=== PATIENT | male | born 1985 | race Two or more races ===

== ENCOUNTER 2017-06-15 17:28 | Emergency (ER) | payer OTHER ==
[~2017-06-15] VITALS: Ht 180.3 cm; Wt 74.8 kg
[2017-06-15 17:28] VITALS: BP 130/67
--- NOTE | 2017-06-15 19:30 | NUR ---
CALLED PT; NO ANSWER. WILL TRY AGAIN
--- NOTE | 2017-06-15 20:00 | NUR ---
CALLED AGAIN; NOT IN MAIN LOBBY.
--- NOTE | 2017-06-15 20:15 | NUR ---
PT TAKEN TO ROOM AFTER "WAS IN THE RESTROOM"
[2017-06-15] MEDS ORDERED: ONDANSETRON 4 MG TAB.RAPDIS ONE (20:44)
[2017-06-15] MEDS ORDERED: LOPERAMIDE HCL (2 MG CAP) 2 MG CAPSULE PO ONE (20:44)
[2017-06-15] MEDS: LOPERAMIDE HCL (2 MG CAP) 2 MG CAPSULE PO ONE (20:47)
[2017-06-15] MEDS: ONDANSETRON 4 MG TAB.RAPDIS SL ONE (20:47)
== END 2017-06-15 20:57 | disposition home or self-care (01) ==
LOC: ER 17:40
DX: R11.2 Nausea with vomiting, unspecified (principal); R10.84 Generalized abdominal pain; F17.200 Nicotine dependence, unspecified, uncomplicated
CPT/HCPCS: A4606; Q0162; Z7610